=== PATIENT | female | born 1970 ===

== ENCOUNTER 2019-11-17 11:04 | Outpatient (CLI) | payer OTHER | END 2019-11-17 11:06 | disposition home or self-care (01) | LOC: MAMO-SONO 11:04 | DX: Z12.31 Encounter for screening mammogram for malignant neoplasm of breast (principal); N92.5 Other specified irregular menstruation; N84.0 Polyp of corpus uteri ==

== ENCOUNTER → 2020-03-01 | Outpatient (CLI) | payer OTHER | END | disposition home or self-care (01) | LOC: RAD 09:28 | DX: R05 Cough (principal) ==

== ENCOUNTER 2020-03-17 09:23 | Outpatient (CLI) | payer OTHER | END 2020-03-17 09:25 | disposition home or self-care (01) | LOC: SONOGRAMA 09:23 | PROVIDERS: ATTEND Internal Medicine | DX: E04.8 Other specified nontoxic goiter (principal) ==

== ENCOUNTER 2021-02-16 07:41 | Outpatient (CLI) | payer OTHER | END 2021-02-16 07:56 | disposition home or self-care (01) | LOC: MAMO-SONO 07:41 | DX: N64.4 Mastodynia (principal) ==

== ENCOUNTER 2022-03-16 08:54 | Outpatient (CLI) | payer OTHER | END 2022-03-16 09:05 | disposition home or self-care (01) | LOC: MAMO-SONO 08:54 | PROVIDERS: ATTEND Obstetrics & Gynecology Gynecology | DX: N64.0 Fissure and fistula of nipple (principal) ==

== ENCOUNTER 2022-05-31 16:21 | Outpatient (CLI) | payer OTHER | END 2022-05-31 16:54 | disposition home or self-care (01) | LOC: RAD 16:21 | PROVIDERS: ATTEND Orthopaedic Surgery | DX: M54.40 Lumbago with sciatica, unspecified side (principal); M17.11 Unilateral primary osteoarthritis, right knee ==

== ENCOUNTER 2023-03-28 14:08 | Outpatient (CLI) | payer OTHER | END 2023-03-28 14:21 | disposition home or self-care (01) | LOC: MAMO-SONO 14:08 | DX: N64.4 Mastodynia (principal); Z12.31 Encounter for screening mammogram for malignant neoplasm of breast ==

== ENCOUNTER 2024-04-23 09:01 | Outpatient (CLI) | payer OTHER | END 2024-04-23 09:10 | disposition home or self-care (01) | LOC: MAMO-SONO 09:01 | PROVIDERS: ATTEND Obstetrics & Gynecology Gynecology | DX: N64.4 Mastodynia (principal); Z12.31 Encounter for screening mammogram for malignant neoplasm of breast ==

== ENCOUNTER 2025-05-25 07:50 | Outpatient (CLI) | payer OTHER | END 2025-05-25 08:01 | disposition home or self-care (01) | LOC: MAMO-SONO 07:50 | PROVIDERS: ATTEND Obstetrics & Gynecology Gynecology | DX: Z12.31 Encounter for screening mammogram for malignant neoplasm of breast (principal); N64.4 Mastodynia ==